=== PATIENT | female | born 1970 | race Caucasian/White ===

== ENCOUNTER 2019-12-31 10:04 | Emergency (ER) | payer OTHER ==
[~2019-12-31] VITALS: Ht 162.6 cm; Wt 99.3 kg
[~2019-12-31 10:04] MED LIST: ADIPEX-P37.5 M1 PO; CYMBALTA PO; CYMBALTA30 MG PO; CYMBALTA60 MG PO; DIAZEPAM 5 MG5 M1 OR; FLEXERIL PO; HYDROCODON-ACE1 EAC7 PO; IMITREX 50 MG T50 M1 PO; NABUMETONE 500500 M1 PO; NAPROSYN500 MG PO; PROPRANOLOL 1010 M1 PO; TOPAMAX 25 MG T25 M1 PO; TRAMADOL 50 MG50 MG PO; TRIAMTERENE-HC1 EAC1 PO; XANAX XR1 MG
[2019-12-31] MEDS ORDERED: LEXAPRO20 MG PO (10:19)
[2019-12-31] MEDS ORDERED: FLEXERIL PO (10:20)
[2019-12-31] MEDS ORDERED: AMITRIPTYLINE H50 M2 PO (10:26)
[2019-12-31] MEDS ORDERED: NORCO 5-325 TA1 EAC2 PO (12:04)
[2019-12-31 12:56] VITALS: BP 136/78
== END 2019-12-31 12:57 | disposition home or self-care (01) ==
LOC: M.ERS 10:04
DX: S93.492A Sprain of other ligament of left ankle, initial encounter (principal); M25.562 Pain in left knee; G43.909 Migraine, unspecified, not intractable, without status migrainosus; M79.7 Fibromyalgia; Z91.013 Allergy to seafood; Z90.710 Acquired absence of both cervix and uterus; W10.8XXA Fall (on) (from) other stairs and steps, initial encounter; Y93.89 Activity, other specified; Y92.89 Other specified places as the place of occurrence of the external cause; Y99.8 Other external cause status